=== PATIENT | female | born 1965 | race Two or more races ===

== ENCOUNTER 2018-08-11 18:43 | Emergency (ER) | payer SELFPAY ==
[~2018-08-11] VITALS: Ht 152.4 cm; Wt 86.2 kg
[2018-08-11 19:14] VITALS: BP 143/76
== END 2018-08-11 22:40 | disposition left against medical advice (07) ==
LOC: ER 18:46
DX: M79.601 Pain in right arm (principal); M54.2 Cervicalgia; R51 Headache; Z53.21 Procedure and treatment not carried out due to patient leaving prior to being seen by health care provider

== ENCOUNTER → 2020-07-30 | Outpatient (CLI) | payer OTHER | END | disposition home or self-care (01) | LOC: LAB 14:01 | PROVIDERS: ATTEND Nurse Practitioner Family | DX: Z20.822 Contact with and (suspected) exposure to COVID-19 (principal) | CPT/HCPCS: C9803; U0003 ==

== ENCOUNTER 2024-10-14 20:36 | Inpatient (IN) | payer OTHER ==
[~2024-10-14] VITALS: Ht 152.4 cm; Wt 88.8 kg
--- NOTE | 2024-10-14 21:18 | ED.PDOC ---
History of Present Illness HPI Comments 59 y/o obese, Jordanian speaking F presents with c/c nonradiating, epigastric abdominal pain, with associated nausea and vomiting. Patient endorses on atraumatic and gradual onset of symptoms, last night. Pain is worsens whenever eating. No known recent sick contact, travel, or spoiled food intake. Denies any blood or bilious vomitus, diarrhea, constipation, urinary symptoms, fever, or further associated symptoms. Significant history for cholecystectomy, 1x C- section, and partial thyroidectomy. Time Seen by MD: 21:00 Primary Care Provider: DR FRAZIER Reviewed Notes: Nurses Notes, Medications, Allergies Allergies: Coded Allergies: Penicillins (Verified Allergy, 11/24/12) Information Source: Patient Mode of Arrival: Ambulatory Severity: Moderate Timing: Hours Duration: Since onset Prehospital treatment: None Past Medical History PAST MEDICAL HISTORY: Denies Surgical History: Cholecystectomy, (1x), Thyroidectomy (partial, left side ) Family History Family History: Unknown Social History Smoker: Non-Smoker Alcohol: Denies ETOH Use Drugs: Denies Drug Use Lives In: Home All Other Systems: Reviewed and Negative (Comprehensive systems review obtained and negative except for what is stated in the HPI.) Physical Exam General Appearance: No Apparent Distress, Obese HEENT: Normal ENT Inspection, Pharynx Normal, TMs Normal Neck: Full Range of Motion, Non-Tender, Normal, Normal Inspection Respiratory: Chest Non-Tender, Lungs Clear, No Accessory Muscle Use, No Respiratory Distress, Normal Breath Sounds Cardiovascular: No Edema, No JVD, No Murmur, No Gallop, Normal Peripheral Pulses, Regular Rate/Rhythm Breast Exam: Deferred Gastrointestinal: Epigastric (tenderness ), No Organomegaly, No Pulsatile Mass, Normal Bowel Sounds, Soft, Tenderness (epigastric region ) Genitalia: Deferred Pelvic: Deferred Rectal: Deferred Extremities: No calf tenderness, Normal capillary refill, Normal inspection, Normal range of motion, Non-tender, No pedal edema Musculoskeletal : Apperance: Normal Neurologic: Alert, safety glass installer II-XII nml as Tested, No Motor Deficits, Normal Affect, Normal Mood, No Sensory Deficits Cerebellar Function: Normal Reflexes: Normal Skin: Dry, Normal Color, Warm Lymphatic: No Adenopathy Was a procedure done? Was a procedure done?: No Differential Dx Considerations may include: gastritis, gastroenteritis, GERD, PUD, cholelithiasis, viral syndrome, electrolyte imbalance, dehydration, among others X-Ray, Labs, Meds, VS Lab Test 10/14/24 21:25 Range/Units White Blood Count 6.2 4.4-10.8 10^3/uL Red Blood Count 4.88 4.0-5.20 10^6/uL Hemoglobin 14.7 12.2-16.2 g/dL Hematocrit 43.5 36.0-46.0 % Mean Corpuscular Volume 89.3 80.0-100.0 fL Mean Corpuscular Hemoglobin 30.2 28.0-32.0 pg Mean Corpuscular Hemoglobin Concent 33.9 32.0-36.0 g/dL Red Cell Distribution Width 14.2 11.8-14.3 % Platelet Count 258 140-450 10^3/uL Mean Platelet Volume 8.6 6.9-10.8 fL Neutrophils (%) (Auto) 72.0 37.0-80.0 % Lymphocytes (%) (Auto) 20.2 10.0-50.0 % Monocytes (%) (Auto) 5.5 0.0-12.0 % Eosinophils (%) (Auto) 1.6 0.0-7.0 % Basophils (%) (Auto) 0.7 0.0-2.0 % Neutrophils # (Auto) 4.4 1.6-8.6 10 ^3/uL Lymphocytes # (Auto) 1.2 0.4-5.4 10 ^3/uL Monocytes # (Auto) 0.3 0-1.3 10 ^3/uL Eosinophils # (Auto) 0.1 0-0.8 10 ^3/uL Basophils # (Auto) 0 0-0.2 10 ^3/uL Nucleated Red Blood Cells 0.1 % Sodium Level 142 136-145 mmol/L Potassium Level 3.7 3.5-5.1 mmol/L Chloride Level 106 98-107 mmol/L Carbon Dioxide Level 24 20-31 mmol/L Anion Gap 12 5-15 Blood Urea Nitrogen 14 9-23 mg/dL Creatinine 1.00 0.550-1.02 mg/dL Glomerular Filtration Rate Calc 64 >90 mL/min BUN/Creatinine Ratio 14.0 10.0-20.0 Serum Glucose 115 H 74-106 mg/dL Calcium Level 9.3 8.7-10.4 mg/dL Total Bilirubin 1.1 H 0.2-1.0 mg/dL Aspartate Amino Transferase (AST) 16 13-40 U/L Alanine Aminotransferase (ALT) 15 7-40 U/L Alkaline Phosphatase 103 46-116 U/L Total Protein 7.0 5.7-8.2 g/dL Albumin 4.4 3.2-4.8 g/dL Lipase 63 H 12-53 U/L Current Medications Medications (Trade) Dose Ordered Sig/Yamel Route Start Time Stop Time Status Last Admin Ondansetron HCl (Zofran Po) 8 mg ONCE ONCE PO 10/14/24 21:15 10/14/24 21:16 DC 10/14/24 22:11 Al Hydrox/Mg Hydrox/Simethicone (Maalox Plus) 30 ml ONCE ONCE PO 10/14/24 21:15 10/14/24 21:16 DC 10/14/24 22:10 [place] [address] Ph: [phone] DIAGNOSTIC IMAGING Diagnostic Imaging Report : [id number] Signed PATIENT: SASCHA KRISHNA ACCT: [id number] UNIT: [id number] : 1965 LOC: ER ROOM / BED: / AGE / SEX: 59 / F ADM STATUS: REG ER SERVICE 06 ORDERING PHYSICIAN: MAGDA ADAM MD PROCEDURE(s): ABPL - CT AB PEL WO CON-NO ORAL OR IV REASON: abd pain ORDER NUMBER(s): [id number], ACCESSION NUMBER(s): [id number] Exam: CT CT AB PEL WO CON-NO ORAL OR IV History: abd pain Comparison Study: None TECHNIQUE: Multidetector CT of the abdomen and pelvis without IV contrast. Axial, coronal and sagittal multiplanar reformats were obtained from the axial data set by the technologist. Radiation Dose Information: CT Dose: CTDI volume is 15.84 mGy. Dose-length product is 818.97 mGy*cm FINDINGS: Bibasilar atelectasis. Partially visualized heart is unremarkable. Calcified granuloma within the liver. Status post cholecystectomy. Otherwise, liver, spleen, pancreas and adrenal glands are unremarkable. Small splenule is noted adjacent to the spleen. Kidneys, ureters and urinary bladder unremarkable. Uterus and adnexa unremarkable. Stomach is mildly distended. Otherwise unremarkable. Mildly distended segments of fluid-filled proximal to mid small-bowel measuring up to 3 cm. The remainder of the small bowel loops unremarkable. Appendix is unremarkable. Descending colon and Sigmoid diverticulosis without diverticulitis. Minimal wall thickening of the ascending colon transverse and descending colon. No evidence of intraperitoneal free air or free fluid. No evidence of aortic aneurysm. No significant lymphadenopathy. Surgical clip is noted of the right ventral lower abdominal mesenteric fat. Nonspecific focus of hypodensity within the left lower abdominal mesenteric fat. Soft tissues are unremarkable. No destructive osseous lesions are noted. IMPRESSION: Colitis involving the ascending, transverse and descending colons. Mildly distended Segments of fluid-filled proximal to mid small bowel measuring up to 3 cm which may be due to ileus/ early bowel obstruction. Colonic diverticulosis without diverticulitis. ATED BY: BECKI HALL DO DICTATED DATE/TIME: 10/14/242138 SIGNED BY: BECKI HALL DO SIGNED DATE/TIME: 10/14/242138 CC: Time of 1ST Reevaluation: 21:30 Reevaluation 1ST: Unchanged Patient Education/Counseling: Diagnosis, Treatment, Need For Follow Up Family Education/Counseling: Diagnosis, Treatment, Need For Follow Up, No Family Present SEPSIS Sepsis Screen Physician Orders Urinalysis (10/14/24 20:59) Ct Ab Pel Wo Con-No Oral Or Iv (10/14/24 21:07) Sodium Chloride 0.9% (10/14/24 22:30) Laboratory Tests Test 10/14/24 21:25 White Blood Count 6.2 10^3/uL (4.4-10.8) Medications Medications Dose Ordered Sig/Yamel Route Start Time Stop Time Status Last Admin Dose Admin Al Hydrox/Mg Hydrox/Simethicone 30 ml ONCE ONCE PO 10/14/24 21:15 10/14/24 21:16 DC 10/14/24 22:10 Ondansetron HCl 8 mg ONCE ONCE PO 10/14/24 21:15 10/14/24 21:16 DC 10/14/24 22:11 Departure 1 Departure Time of Disposition: 22:45 Impression: Primary Impression: Colitis Additional Impression: Partial bowel obstruction Disposition: 09 ADMITTED INPATIENT Condition: Guarded Discharged With: Self Comments Abdominal Pain with Nausea and Vomiting Chief Complaint: Generalized abdominal pain with nausea and vomiting for 2 days History of Present Illness: Patient is a 59-year-old female who presents to the Emergency Department with a 2-day history of generalized abdominal pain accompanied by nausea and vomiting. The pain is described as diffuse throughout the abdomen but with notable tenderness in the bilateral lower quadrants on examination. Patient reports persistent symptoms despite home management. No reported fever, chills, diarrhea, constipation, or changes in bowel habits were explicitly mentioned. No history of similar episodes was provided. Review of Systems: Constitutional: No reported fever or chills. Gastrointestinal: Positive for abdominal pain, nausea, and vomiting. No reported diarrhea, constipation, or melena. All other systems: Not specifically addressed in the real estate professional. Medications: No current medications documented. Allergies: No known allergies documented. Vital Signs: No vital signs documented in the real estate professional. Physical Exam: General: Not documented in the real estate professional. Abdomen: Tenderness noted in the lower abdomen bilaterally. No documentation of rebound, guarding, distension, or masses. Lab Results: CBC: Unremarkable. WBC count normal at 6.2. Chemistry Panel: Largely unremarkable with the following exceptions: - Total bilirubin: Borderline elevated at 1.1 - Lipase: Borderline elevated at 63 All other chemistry values within normal limits. Imaging and Other Relevant Results: CT Abdomen: - Colitis involving the ascending, transverse, and descending colon - Mild distended segments of bowel, potentially representing ileus or early bowel obstruction - No free air or free fluid noted Medical Decision Making: Summary Statement: 59-year-old female presenting with 2-day history of general ized abdominal pain, nausea, and vomiting, found to have colitis on CT scan with possible early bowel obstruction. Problem List: 1. Acute colitis 2. Possible early bowel obstruction/ileus 3. Abdominal pain 4. Nausea and vomiting Differential Diagnosis: Infectious colitis, inflammatory bowel disease, ischemic colitis, medication-induced colitis, partial small bowel obstruction, paralytic ileus, gastroenteritis, diverticulitis. ED Course: Patient presented with abdominal pain, nausea, and vomiting. Initial workup included CBC and chemistry panel showing borderline elevated total bilirubin and lipase. CT abdomen revealed colitis of the ascending, transverse, and descending colon with some distended bowel segments concerning for ileus or early obstruction. Patient was reassessed and continued to have pain and nausea despite ED interventions. Decision made to admit for further management. Assessment and Plan: 1. Acute Colitis: - Admit to medical floor for further management - IV fluid hydration - Bowel rest with clear liquid diet as tolerated - Consider broad-spectrum antibiotics pending further clinical evaluation - Monitor for signs of worsening inflammation or perforation 2. Possible Early Bowel Obstruction/Ileus: - Serial abdominal exams - NPO status initially with advancement as tolerated - Nasogastric tube placement if symptoms worsen - Surgical consultation if obstruction progresses 3. Abdominal Pain/Nausea/Vomiting: - Antiemetics as needed (ondansetron) - Pain management with IV analgesics - Reassess symptoms regularly 4. Disposition: Admit to inpatient medical service for continued management and observation. Additional Notes: Patient admitted for acute colitis and possible early bowel obstruction Billing Information: ICD-10: K52.9 - Noninfective gastroenteritis and colitis, unspecified ICD-10: K56.0 - Paralytic ileus ICD-10: R10.9 - Unspecified abdominal pain ICD-10: R11.2 - Nausea with vomiting, unspecified Critical Care Note Critical Care Time?: No Stability Stability form required: No Heart Score Heart Score: Heart Score Response (Comments) Value History N/A 0 EKG N/A 0 Age N/A 0 Risk Factors N/A 0 Troponin N/A 0 Total 0 I personally scribed for MAGDA ADAM MD ([email or web address]) on 10/14/24 at 21:18. Electronically submitted by French Ogden ([email or web address]). I personally scribed for MAGDA ADAM MD ([email or web address]) on 10/14/24 at 22:06. Electronically submitted by French Ogden ([email or web address]). MAGDA ADAM MD Oct 14, 2024 21:18
--- NOTE | 2024-10-14 21:41 | DVH ---
Exam: CT CT AB PEL WO CON-NO ORAL OR IV History: abd pain Comparison Study: None TECHNIQUE: Multidetector CT of the abdomen and pelvis without IV contrast. Axial, coronal and sagitta l multiplanar reformats were obtained from the axial data set by the technologist. Radiation Dose Information: CT Dose: CTDI volume is 15.84 mGy. Dose-length product is 818.97 mGy*cm FINDINGS: Bibasilar atelectasis. Partially visualized heart is unremarkable. Calcified granuloma within the liver. Status post cholecystectomy. Otherwise, liver, spleen, pancrea s and adrenal glands are unremarkable. Small splenule is noted adjacent to the spleen. Kidneys, ureters and urinary bladder unremarkable. Uterus and adnexa unremarkable. Stomach is mildly distended. Otherwise unremarkable. Mildly distended segments of fluid-filled proxi mal to mid small-bowel measuring up to 3 cm. The remainder of the small bowel loops unremarkable. A ppendix is unremarkable. Descending colon and Sigmoid diverticulosis without diverticulitis. Minimal wall thickening of the ascending colon transverse and descending colon. No evidence of intraperitoneal free air or free fluid. No evidence of aortic aneurysm. No significant lymphadenopathy. Surgical clip is noted of the right ventral lower abdominal mesenteric fat. Nonspecific focus of hypo density within the left lower abdominal mesenteric fat. Soft tissues are unremarkable. No destructive osseous lesions are noted. IMPRESSION: Colitis involving the ascending, transverse and descending colons. Mildly distended Segments of fluid-filled proximal to mid small bowel measuring up to 3 cm which may be due to ileus/ early bowel obstruction. Colonic diverticulosis without diverticulitis.
[2024-10-14 21:48] LABS: Hematocrit 43.5 % (36.0-46.0); Hemoglobin 14.7 g/dL (12.2-16.2); Mean Corpuscular Hemoglobin 30.2 pg (28.0-32.0); Mean Corpuscular Volume 89.3 fL (80.0-100.0); Nucleated Red Blood Cells % 0.1 %
[2024-10-14 22:10] LABS: Alanine Aminotransferase 15 U/L (7-40); Albumin 4.4 g/dL (3.2-4.8); Alkaline Phosphatase 103 U/L (46-116); Anion Gap 12 (5-15); BUN/Creatinine Ratio 14.0 (10.0-20.0); Blood Urea Nitrogen 14 mg/dL (9-23); Calcium 9.3 mg/dL (8.7-10.4); Carbon Dioxide 24 mmol/L (20-31); Chloride 106 mmol/L (98-107); Potassium 3.7 mmol/L (3.5-5.1); Sodium 142 mmol/L (136-145); Total Protein 7.0 g/dL (5.7-8.2)
[2024-10-14] MEDS: MAALOX PLUS or MAALOX 30 ML PO ONE (22:10)
[2024-10-14 22:11] LABS: Bilirubin, Total 1.1 mg/dL (0.2-1.0)
[2024-10-14] MEDS: ONDANSETRON ODT 4 MG TAB PO ONE (22:11)
[2024-10-14 22:25] LABS: Glucose 115 mg/dL (74-106); Lipase 63 U/L (12-53)
[2024-10-14] MEDS: HYDROcodone-ACET 10/325MG TAB PO ONE (22:41)
[2024-10-14] MEDS: FAMOTIDINE 20 MG TAB PO ONE (22:41)
[2024-10-14] MEDS: MORPHINE SULFATE 4 MG/ML SYR/VIAL IV ONE (22:51)
[2024-10-14] MEDS: SODIUM CHLORIDE 0.9% 1,000 ML IV ONE (22:51)
[2024-10-14] MEDS: diphenhdrAMINE HCL 50 MG/1 ML VL IV ONE (22:51)
[2024-10-14 22:55] VITALS: PULSE 53; RESP 18; O2SAT 98
[2024-10-14] MEDS: METOCLOPRAMIDE HCL 5MG/ml INJ 2ml VIAL IV ONE (23:08)
[2024-10-15] VITALS (7 sets, daily range): BP systolic 95–124; BP diastolic 50–65; PULSE 48–55; RESP 11–19; TEMP 97.5–98.1; O2SAT 95–98
--- NOTE | 2024-10-15 00:11 | DVHHP2 ---
History of Present Illness Reason for Visit: Abdominal pain History of Present Illness 59-year-old female presents for evaluation of abdominal pain. Patient reports a one day history of sharp epigastric abdominal pain with associated nausea and vomiting. Denies fever, chills or diarrhea. Pain is epigastric and nonradiating. No other acute complaints reported. Past Medical History Denies Past Surgical History Cholecystectomy, , thyroidectomy Family History Noncontributory Smoke: No ALCOHOL: none Drugs: None Lives: with Family Review of Systems Review of Systems Review of systems are currently negative otherwise addressed in HPI. Allergies: Coded Allergies: Penicillins (Verified Allergy, 11/24/12) Medications Current Medications Medications Dose Ordered Sig/Yamel Route Start Time Stop Time Status Last Admin Dose Admin Metronidazole 100 ml @ 100 mls/hr Q8HR IV 10/15/24 06:00 Pantoprazole Sodium 40 mg DAILY IV 10/15/24 10:00 Ondansetron HCl 4 mg Q4HP PRN IV 10/15/24 00:00 Morphine Sulfate 2 mg Q4HPRN PRN IV 10/15/24 00:00 Exam Vital Signs Vital Signs Date Time Temp Pulse Resp B/P (MAP) Pulse Ox O2 Delivery O2 Flow Rate FiO2 10/14/24 23:39 57 18 89/48 10/14/24 22:55 98 Room Air* 0 21 10/14/24 22:55 98.0 98.0 Exam Gen: 67-year-old female in mild distress Skin: Warm, dry, normal color and texture, no rash. HEENT: Normocephalic atraumatic, mucous membranes moist and pink. Neck: Cervical and supraclavicular nodes normal without enlargement, trachea is midline, thyroid gland is normal without masses. Pulmonary: Clear to auscultation and percussion bilaterally. Cardiac: Regular rate and rhythm. No murmur Abdomen: Soft, epigastric tenderness, nondistended, bowel sounds present all 4 quadrants, no guarding, no rigidity, no organomegaly. Extremities: No cyanosis, clubbing, no edema Neuro: Cranial nerves II through XII grossly intact, normal affect and speech, no focal motor deficits. Labs/Xrays ORDERING PHYSICIAN: MAGDA ADAM MD PROCEDURE(s): ABPL - CT AB PEL WO CON-NO ORAL OR IV REASON: abd pain ORDER NUMBER(s): [id number], ACCESSION NUMBER(s): [id number] Exam: CT CT AB PEL WO CON-NO ORAL OR IV History: abd pain Comparison Study: None TECHNIQUE: Multidetector CT of the abdomen and pelvis without IV contrast. Axial, coronal and sagittal multiplanar reformats were obtained from the axial data set by the technologist. Radiation Dose Information: CT Dose: CTDI volume is 15.84 mGy. Dose-length product is 818.97 mGy*cm FINDINGS: Bibasilar atelectasis. Partially visualized heart is unremarkable. Calcified granuloma within the liver. Status post cholecystectomy. Otherwise, liver, spleen, pancreas and adrenal glands are unremarkable. Small splenule is noted adjacent to the spleen. Kidneys, ureters and urinary bladder unremarkable. Uterus and adnexa unremarkable. Stomach is mildly distended. Otherwise unremarkable. Mildly distended segments of fluid-filled proximal to mid small-bowel measuring up to 3 cm. The remainder of the small bowel loops unremarkable. Appendix is unremarkable. Descending colon and Sigmoid diverticulosis without diverticulitis. Minimal wall thickening of the ascending colon transverse and descending colon. No evidence of intraperitoneal free air or free fluid. No evidence of aortic aneurysm. No significant lymphadenopathy. Surgical clip is noted of the right ventral lower abdominal mesenteric fat. Non specific focus of hypodensity within the left lower abdominal mesenteric fat. Soft tissues are unremarkable. No destructive osseous lesions are noted. IMPRESSION: Colitis involving the ascending, transverse and descending colons. Mildly distended Segments of fluid-filled proximal to mid small bowel measuring up to 3 cm which may be due to ileus/ early bowel obstruction. Colonic diverticulosis without diverticulitis. Labs Test 10/14/24 21:25 Range/Units White Blood Count 6.2 4.4-10.8 10^3/uL Red Blood Count 4.88 4.0-5.20 10^6/uL Hemoglobin 14.7 12.2-16.2 g/dL Hematocrit 43.5 36.0-46.0 % Mean Corpuscular Volume 89.3 80.0-100.0 fL Mean Corpuscular Hemoglobin 30.2 28.0-32.0 pg Mean Corpuscular Hemoglobin Concent 33.9 32.0-36.0 g/dL Red Cell Distribution Width 14.2 11.8-14.3 % Platelet Count 258 140-450 10^3/uL Mean Platelet Volume 8.6 6.9-10.8 fL Neutrophils (%) (Auto) 72.0 37.0-80.0 % Lymphocytes (%) (Auto) 20.2 10.0-50.0 % Monocytes (%) (Auto) 5.5 0.0-12.0 % Eosinophils (%) (Auto) 1.6 0.0-7.0 % Basophils (%) (Auto) 0.7 0.0-2.0 % Neutrophils # (Auto) 4.4 1.6-8.6 10 ^3/uL Lymphocytes # (Auto) 1.2 0.4-5.4 10 ^3/uL Monocytes # (Auto) 0.3 0-1.3 10 ^3/uL Eosinophils # (Auto) 0.1 0-0.8 10 ^3/uL Basophils # (Auto) 0 0-0.2 10 ^3/uL Nucleated Red Blood Cells 0.1 % Sodium Level 142 136-145 mmol/L Potassium Level 3.7 3.5-5.1 mmol/L Chloride Level 106 98-107 mmol/L Carbon Dioxide Level 24 20-31 mmol/L Anion Gap 12 5-15 Blood Urea Nitrogen 14 9-23 mg/dL Creatinine 1.00 0.550-1.02 mg/dL Glomerular Filtration Rate Calc 64 >90 mL/min BUN/Creatinine Ratio 14.0 10.0-20.0 Serum Glucose 115 H 74-106 mg/dL Calcium Level 9.3 8.7-10.4 mg/dL Total Bilirubin 1.1 H 0.2-1.0 mg/dL Aspartate Amino Transferase (AST) 16 13-40 U/L Alanine Aminotransferase (ALT) 15 7-40 U/L Alkaline Phosphatase 103 46-116 U/L Total Protein 7.0 5.7-8.2 g/dL Albumin 4.4 3.2-4.8 g/dL Lipase 63 H 12-53 U/L SEPSIS Sepsis Screen Date sepsis recognized/suspect: Oct 14, 2024 Time Sepsis recognized/suspect: 2049 Recent Procedure: No On Antibiotic Therapy: No Respiratory Rate >20: No Heart Rate >90: No Temp<36 C (96.8 F) or >38.3 C: No SBP <90 or MAP <65 mmHG: No New Acute Mental Status Change: No Is the patient on CPAP, BIPAP,: No Physician Orders Urinalysis (10/14/24 20:59) Ct Ab Pel Wo Con-No Oral Or Iv (10/14/24 21:07) Admit (10/14/24 23:48) * Surgical Consult (10/14/24 ) Small Bowel Series-W Gastrogra (10/14/24 23:49) Sodium Chloride 0.9% (10/15/24 00:00) Metronidazole 500mg/100ml (Flagyl 500mg/ (10/15/24 06:00) Pantoprazole (Protonix) (10/15/24 10:00) Ondansetron Hcl (Zofran) (10/15/24 00:00) Complete Blood Count (10/15/24 04:00) Npo (Nothing By Mouth) Diet (10/15/24 Breakfast) Condition: Stable (10/14/24 23:49) Bedrest With Bathroom Privileg (10/14/24 23:49) Morphine Sulfate Injection (10/15/24 00:00) Basic Metabolic Panel (10/15/24 04:00) Vital Signs Date Time Temp Pulse Resp B/P (MAP) Pulse Ox O2 Delivery O2 Flow Rate FiO2 10/14/24 23:39 57 18 89/48 10/14/24 22:55 53 18 98 Room Air* 0 21 10/14/24 22:55 98.0 53 18 117/57 (77) 98 98.0 10/14/24 22:51 53 18 117/57 10/14/24 20:36 97.8 57 17 135/74 (94) 99 97.8 Laboratory Tests Test 10/14/24 21:25 White Blood Count 6.2 10^3/uL (4.4-10.8) Medications Medications Dose Ordered Sig/Yamel Route Start Time Stop Time Status Last Admin Dose Admin Al Hydrox/Mg Hydrox/Simethicone 30 ml ONCE ONCE PO 10/14/24 21:15 10/14/24 21:16 DC 10/14/24 22:10 30 ML Morphine Sulfate 4 mg ONCE ONCE IV 10/14/24 22:30 10/14/24 22:31 DC 10/14/24 22:51 4 MG Ondansetron HCl 8 mg ONCE ONCE PO 10/14/24 21:15 10/14/24 21:16 DC 10/14/24 22:11 8 MG Sodium Chloride 1,000 ml @ 1,000 mls/hr Q1H ONCE IV 10/14/24 22:30 10/14/24 23:29 DC 10/14/24 22:51 1,000 MLS/HR Assessment/Plan Assessment/Plan Assessment Acute abdominal pain Acute colitis versus bowel obstruction Plan Admit the patient to [facility] to the hospitalist Surgical consultation NPO Small-bowel follow-through Pain management Continue treatment per orders. Plan discussed with: Patient My Orders Orders - ERIN MAYA Procedure Category Date Status Time Admit ADMIT 10/14/24 Transmitted 23:48 * Surgical Consult CONS 10/14/24 Transmitted Small Bowel Series-W XY 10/14/24 Logged Gastrogra 23:49 Sodium Chloride 0.9% PHA 10/15/24 In Process 00:00 Metronidazole PHA 10/15/24 In Process 500mg/100ml (Flagyl 06:00 Pantoprazole PHA 10/15/24 In Process (Protonix) 10:00 Ondansetron Hcl PHA 10/15/24 In Process (Zofran) 00:00 Complete Blood Count LAB 10/15/24 Logged 04:00 Npo (Nothing By DIET 10/15/24 Transmitted Mouth) Diet Breakfast Condition: Stable YENNIFER 10/14/24 In Process 23:49 Bedrest With Bathroom YENNIFER 10/14/24 In Process Privileg 23:49 Morphine Sulfate PHA 10/15/24 In Process Injection 00:00 Basic Metabolic Panel LAB 10/15/24 Logged 04:00 Date of Service: Oct 15, 2024 Billing Provider: ERIN MAYA Common Visit Codes: [id number] INP/OBS CARE (MOD) ERIN MAYA Oct 15, 2024 00:11
[2024-10-15] MEDS: SODIUM CHLORIDE 0.9% 500 ML IV ONE (00:20)
[2024-10-15] MEDS: MORPHINE SULFATE INJ 2 MG/ml SYRG IV PRN (02:11)
[2024-10-15 06:34] LABS: Hematocrit 39.3 % (36.0-46.0); Hemoglobin 13.5 g/dL (12.2-16.2); Mean Corpuscular Hemoglobin 30.6 pg (28.0-32.0); Mean Corpuscular Volume 89.3 fL (80.0-100.0); Nucleated Red Blood Cells % 0.0 %
[2024-10-15 06:44] LABS: Potassium 3.8 mmol/L (3.5-5.1); Sodium 144 mmol/L (136-145)
[2024-10-15 06:45] LABS: Anion Gap 11 (5-15); Calcium 9.2 mg/dL (8.7-10.4); Carbon Dioxide 24 mmol/L (20-31)
[2024-10-15 06:50] LABS: BUN/Creatinine Ratio 16.1 (10.0-20.0); Blood Urea Nitrogen 15 mg/dL (9-23)
[2024-10-15 06:52] LABS: Chloride 109 mmol/L (98-107); Glucose 130 mg/dL (74-106)
[2024-10-15] MEDS: PANTOPRAZOLE 40 MG/10 ML VIAL INJ IV SCH (09:00)
[2024-10-15] MEDS ORDERED: GASTROGRAFIN 120 ML SOL ONE (10:46)
--- NOTE | 2024-10-15 10:50 | DVHPN2 ---
Subjective Japanese-speaking; staff helped with translation; still complaining of abdominal pain but no nausea/vomiting Reviewed: Care Plan, H&P, Labs, Medications, Previous Orders, Radiology, Other (Consultation) Changes from previous H/P or p: Changes Objective Vitals Vital Signs Date Time Temp Pulse Resp B/P (MAP) Pulse Ox O2 Delivery O2 Flow Rate FiO2 10/15/24 09:14 97.5 55 19 95/57 (70) 97 97.5 10/15/24 01:46 Room Air* 0 21 Intake/Output Intake and Output 10/15/24 07:00 Intake Total 1500 ml Balance 1500 ml Intake Oral 0 ml IV Total 1500 ml General Appearance: Alert, Oriented X3, Cooperative, mild distress Lungs: Clear to auscultation, Normal air movement Cardiovascular: Regular rate, Normal S1, Normal S2, No murmurs Abdomen: Soft, Other (Hyperactive bowel sounds with diffuse tenderness) Extremities: No edema Neuro: Normal speech, Cranial nerves 3-12 NL Psych/Mental Status: Mental status NL, Mood NL Medications Current Medications Medications Dose Ordered Sig/Yamel Route Start Time Stop Time Status Last Admin Dose Admin Metronidazole 100 ml @ 100 mls/hr Q8HR IV 10/15/24 06:00 10/15/24 05:01 100 MLS/HR Pantoprazole Sodium 40 mg DAILY IV 10/15/24 10:00 10/15/24 09:00 40 MG Ondansetron HCl 4 mg Q4HP PRN IV 10/15/24 00:00 Morphine Sulfate 2 mg Q4HPRN PRN IV 10/15/24 00:00 10/15/24 09:01 2 MG Laboratory Results Laboratory Tests 10/15/24 05:37 Chemistry Test 10/14/24 21:25 10/15/24 05:37 Albumin 4.4 g/dL (3.2-4.8) Calcium Level 9.3 mg/dL (8.7-10.4) 9.2 mg/dL (8.7-10.4) Total Protein 7.0 g/dL (5.7-8.2) Lipid panel Test 10/14/24 21: Lipase 63 U/L (12-53) H LFT Test 10/14/24 21:25 Alanine Aminotransferase (ALT) 15 U/L (7-40) Alkaline Phosphatase 103 U/L (46-116) Aspartate Amino Transferase (AST) 16 U/L (13-40) Total Bilirubin 1.1 mg/dL (0.2-1.0) H Labs and/or images reviewed: Labs reviewed by me, Image(s) reviewed by me Assessment/Plan Assessment/Plan A 59-year-old obese female patient; with no known past medical history; who presented to emergency department with acute abdomen. # Acute abdomen; to rule out small-bowel obstruction # VALERIA; most likely vasomotor nephropathy # Colonic diverticulosis without diverticulitis # Pancolitis # Obesity To keep NPO for now until the result of small bowel series Reviewed abdomen/pelvis CT and lab work including elevated lipase Continue IV antibiotics Surgery consulted Continue IV fluids Avoid nephrotoxic agents Continue pain management as indicated Counseled the patient on the importance of adopting healthy lifestyle with diet and exercise in order to lose weight Continue monitoring Goals of care discussed with the patient for 20 minutes; full code Late Entry. This medical document was created using an electronic medical record system with computerized dictation system. Although this document has been carefully reviewed, there might still be some phonetic and typographical errors. These areas are purely typographical due to imperfections of the software programs, and do not reflect any compromise in the patient's medical care. Plan discussed with: Patient, Other (Nurse) My Orders Orders - SHIMA PANCHAL MD Procedure Category Date Status Time Complete Blood Count LAB 10/16/24 Verified 04:00 Comprehensive LAB 10/16/24 Verified Metabolic Panel 04:00 Date of Service: Oct 15, 2024 Billing Provider: SHIMA PANCHAL MD Common Visit Codes: [id number] INP/OBS CARE(HIGH) Secondary Visit Codes: [id number] CARE PLAN 30 MINUTES (20 minutes) SHIMA PANCHAL MD Oct 15, 2024 10:50
--- NOTE | 2024-10-15 14:55 | DVH ---
Procedure: XY SMALL BOWEL SERIES-W GASTROGRA Reason for study/Clinical History: R/O obstruction Comparison Study: None Technique: Single contrast small bowel series performed. FINDINGS/IMPRESSION: Initial associate professor of counseling view of the abdomen and pelvis appears demonstrates no acute process. Contrast is identified within the colon by 2 hours. This represents a normal small bowel transit anthony garcia
[2024-10-15] MEDS ORDERED: MORPHINE SULFATE INJ 2 MG/ml SYRG IV PRN (17:00)
[2024-10-16] VITALS (8 sets, daily range): BP systolic 108–129; BP diastolic 59–93; PULSE 55–69; RESP 18; TEMP 97.6–98.7; O2SAT 95–98
[2024-10-16 06:52] LABS: Hematocrit 36.3 % (36.0-46.0); Hemoglobin 12.8 g/dL (12.2-16.2); Mean Corpuscular Hemoglobin 31.8 pg (28.0-32.0); Mean Corpuscular Volume 89.8 fL (80.0-100.0); Nucleated Red Blood Cells % 0.2 %
[2024-10-16 06:57] LABS: Alanine Aminotransferase 16 U/L (7-40); Albumin 3.7 g/dL (3.2-4.8); Alkaline Phosphatase 89 U/L (46-116); Anion Gap 10 (5-15); BUN/Creatinine Ratio 15.7 (10.0-20.0); Blood Urea Nitrogen 16 mg/dL (9-23); Calcium 9.1 mg/dL (8.7-10.4); Carbon Dioxide 24 mmol/L (20-31); Glucose 88 mg/dL (74-106); Potassium 3.5 mmol/L (3.5-5.1); Total Protein 5.8 g/dL (5.7-8.2)
[2024-10-16 07:02] LABS: Bilirubin, Total 1.3 mg/dL (0.2-1.0); Chloride 111 mmol/L (98-107); Sodium 145 mmol/L (136-145)
--- NOTE | 2024-10-16 09:08 | DVHPN2 ---
Subjective Latvian-speaking; staff helped with translation; decreasing abdominal pain; complaining of the area; no nausea/vomiting Reviewed: Care Plan, H&P, Labs, Medications, Previous Orders, Radiology, Other (Consultation) Changes from previous H/P or p: Changes Objective Vitals Vital Signs Date Time Temp Pulse Resp B/P (MAP) Pulse Ox O2 Delivery O2 Flow Rate FiO2 10/16/24 08:39 98.3 69 18 129/93 (105) 98 98.3 10/15/24 20:00 Room Air* 0 21 Intake/Output Intake and Output 10/16/24 07:00 Intake Total 1500 ml Balance 1500 ml Intake Oral 1400 ml IV Total 100 ml # Voids 10 # Bowel Movements 4 General Appearance: Alert, Oriented X3, Cooperative, No acute distress Lungs: Clear to auscultation, Normal air movement Cardiovascular: Regular rate, Normal S1, Normal S2, No murmurs Abdomen: Soft, Other (Hyperactive bowel sounds with diffuse tenderness) Extremities: No edema Neuro: Normal speech, Cranial nerves 3-12 NL Psych/Mental Status: Mental status NL, Mood NL Medications Current Medications Medications Dose Ordered Sig/Yamel Route Start Time Stop Time Status Last Admin Dose Admin Metronidazole 100 ml @ 100 mls/hr Q8HR IV 10/15/24 06:00 10/16/24 05:18 100 MLS/HR Pantoprazole Sodium 40 mg DAILY IV 10/15/24 10:00 10/15/24 09:00 40 MG Ondansetron HCl 4 mg Q4HP PRN IV 10/15/24 00:00 Morphine Sulfate 2 mg Q4HPRN PRN IV 10/15/24 00:00 Hold 10/15/24 09:01 2 MG Morphine Sulfate 1 mg Q4HP PRN IV 10/15/24 17:00 Laboratory Results Laboratory Tests 10/16/24 05:52 Chemistry Test 10/16/24 05:52 Albumin 3.7 g/dL (3.2-4.8) Calcium Level 9.1 mg/dL (8.7-10.4) Total Protein 5.8 g/dL (5.7-8.2) LFT Test 10/16/24 05:52 Alanine Aminotransferase (ALT) 16 U/L (7-40) Alkaline Phosphatase 89 U/L (46-116) Aspartate Amino Transferase (AST) 15 U/L (13-40) Total Bilirubin 1.3 mg/dL (0.2-1.0) H Labs and/or images reviewed: Labs reviewed by me, Image(s) reviewed by me Assessment/Plan Assessment/Plan A 59-year-old obese female patient; with no known past medical history; who presented to emergency department with acute abdomen. # Acute abdomen; small-bowel obstruction ruled out # VALERIA; most likely vasomotor nephropathy # Colonic diverticulosis without diverticulitis # Pancolitis # Morbid obesity Started on clear liquid diet Reviewed abdomen/pelvis CT and small bowel x-rays along with lab work including elevated lipase Continue IV antibiotics Surgery evaluated the patient; recommended GI consult: Stool studies ordered Continue IV fluids Avoid nephrotoxic agents Continue pain management as indicated Counseled the patient on the importance of adopting healthy lifestyle with diet and exercise in order to lose weight Continue monitoring Late Entry. This medical document was created using an electronic medical record system with computerized dictation system. Although this document has been carefully reviewed, there might still be some phonetic and typographical errors. These areas are purely typographical due to imperfections of the software programs, and do not reflect any compromise in the patient's medical care. Plan discussed with: Patient, Other (Nurse) My Orders Orders - SHIMA PANCHAL MD Procedure Category Date Status Time Morphine Sulfate PHA 10/15/24 In Process Injection 17:00 Clear Liq Diet DIET 10/16/24 Transmitted Breakfast Basic Metabolic Panel LAB 10/17/24 Verified 04:00 Complete Blood Count LAB 10/17/24 Verified 04:00 Date of Service: Oct 16, 2024 Billing Provider: SHIMA PANCHAL MD Common Visit Codes: [id number] INP/OBS CARE(HIGH) SHIMA PANCHAL MD Oct 16, 2024 09:08
--- NOTE | 2024-10-16 09:33 | DVHINCON2 ---
Date of service: Oct 16, 2024 History of Present Illness 59-year-old female complaining of one day history of epigastric abdominal pain associated with nausea and vomiting. Patient denies any fevers or chills. Patient denies any abdominal pain. Past Medical History None Past Surgical History Cholecystectomy. . Thyroidectomy. Family History: FH: heart attack G8 MOTHER G8 FATHER Family History NC Social History denies Alcohol, tobacco, IV drug use Allergies: Coded Allergies: Penicillins (Verified Allergy, 11/24/12) Current Medications Current Medications Medications (Trade) Dose Ordered Sig/Yamel Route PRN Reason Start Time Stop Time Status Last Admin Pantoprazole Sodium (Protonix) 40 mg DAILY IV 10/15/24 10:00 10/16/24 08:55 Morphine Sulfate 1 mg Q4HP PRN IV SEVERE PAIN (7-10 PAIN SCALE) 10/15/24 17:00 Enoxaparin Sodium (Lovenox) 40 mg DAILY SC 10/16/24 10:00 Vital Signs Vital Signs Date Time Temp Pulse Resp B/P (MAP) Pulse Ox O2 Delivery O2 Flow Rate FiO2 10/16/24 08:39 98.3 69 18 129/93 (105) 98 98.3 10/15/24 20:00 Room Air* 0 21 Physical Exam GEN: Age-appropriate female in no acute distress. Alert. HEENT: Normocephalic atraumatic. Moist mucous membranes. Anicteric sclerae. CV: RRR Respiratory: CTAB ABD: Soft. Nontender nondistended. Small-bowel follow-through: Normal CT of the abdomen and pelvis: Colitis involving the ascending, transverse and descending colons Labs/Diagnostic Data Labs Test 10/16/24 05:52 10/15/24 00:44 10/14/24 21:25 Range/Units White Blood Count 3.7 #L 4.4-10.8 10^3/uL Red Blood Count 4.04 4.0-5.20 10^6/uL Hemoglobin 12.8 12.2-16.2 g/dL Hematocrit 36.3 36.0-46.0 % Mean Corpuscular Volume 89.8 80.0-100.0 fL Mean Corpuscular Hemoglobin 31.8 28.0-32.0 pg Mean Corpuscular Hemoglobin Concent 35.4 32.0-36.0 g/dL Red Cell Distribution Width 14.7 H 11.8-14.3 % Platelet Count 209 140-450 10^3/uL Mean Platelet Volume 8.7 6.9-10.8 fL Neutrophils (%) (Auto) 56.1 37.0-80.0 % Lymphocytes (%) (Auto) 32.9 10.0-50.0 % Monocytes (%) (Auto) 7.8 0.0-12.0 % Eosinophils (%) (Auto) 2.6 0.0-7.0 % Basophils (%) (Auto) 0.6 0.0-2.0 % Neutrophils # (Auto) 2.1 1.6-8.6 10 ^3/uL Lymphocytes # (Auto) 1.2 0.4-5.4 10 ^3/uL Monocytes # (Auto) 0.3 0-1.3 10 ^3/uL Eosinophils # (Auto) 0.1 0-0.8 10 ^3/uL Basophils # (Auto) 0 0-0.2 10 ^3/uL Nucleated Red Blood Cells 0.2 % Sodium Level 145 136-145 mmol/L Potassium Level 3.5 3.5-5.1 mmol/L Chloride Level 111 H 98-107 mmol/L Carbon Dioxide Level 24 20-31 mmol/L Anion Gap 10 5-15 Blood Urea Nitrogen 16 9-23 mg/dL Creatinine 1.02 0.550-1.02 mg/dL Glomerular Filtration Rate Calc 63 >90 mL/min BUN/Creatinine Ratio 15.7 10.0-20.0 Serum Glucose 88 74-106 mg/dL Calcium Level 9.1 8.7-10.4 mg/dL Total Bilirubin 1.3 H 0.2-1.0 mg/dL Aspartate Amino Transferase (AST) 15 13-40 U/L Alanine Aminotransferase (ALT) 16 7-40 U/L Alkaline Phosphatase 89 46-116 U/L Total Protein 5.8 5.7-8.2 g/dL Albumin 3.7 3.2-4.8 g/dL POC Glucose 118 H 70-106 mg/dl Lipase 63 H 12-53 U/L Assessment 1. colitis Plan/Recommendation 1. clinically improving. 2. clear liquid diet 3. GI consult. 4. no acute surgical indications. Plan discussed with: Patient PERCY BURCH MD Oct 16, 2024 09:33
[2024-10-16] MEDS: ENOXAPARIN SOD 40 MG/0.4 ML SYRINGE SC SCH (10:22)
--- NOTE | 2024-10-16 14:28 | DVHINCON2 ---
GI Consult Consult Note GI consult note Date of Consultation: 10/16/2024 Chief Complaint: Abdominal pain Referring Physician: Dr. Nicholson H&P: 59-year-old female admitted to the hospital with abdominal pain Patient complaining of epigastric abdominal pain for three days. Also has nausea and vomiting, none at this time. Patient has occasional GERD symptoms only Patient complains of loose stool about 10 episodes yesterday, so far this morning four episodes, yellow in color, denies melena or red blood in stool. No EGD or colonoscopy in past. Patient is status post cholecystectomy 25 years ago. Denies alcohol use Past Medical History: Denies Past Surgical History: Cholecystectomy, , thyroidectomy Social History: NO smoking, drinking ETOH and use of illegal drugs. Family History: Noncontributory Review of Systems: Constitutional: no fever, chill, weight loss HEENT: no eye pain, no hearing loss, no oral lesion, no scleral icterus Heart: no chest pain, no chest pressure Lung: no cough, no dyspnea with exertion Abdomen: see HPI Physical exam: General: NAD, AAOX3 Chest: lung [place] clear to auscultation Heart: RRR, no murmur Abdomen: + moderate epigastric tenderness to palpation, +BS Labs: Labs Test 10/16/24 05:52 10/15/24 00:44 10/14/24 21:25 Range/Units White Blood Count 3.7 #L 4.4-10.8 10^3/uL Red Blood Count 4.04 4.0-5.20 10^6/uL Hemoglobin 12.8 12.2-16.2 g/dL Hematocrit 36.3 36.0-46.0 % Mean Corpuscular Volume 89.8 80.0-100.0 fL Mean Corpuscular Hemoglobin 31.8 28.0-32.0 pg Mean Corpuscular Hemoglobin Concent 35.4 32.0-36.0 g/dL Red Cell Distribution Width 14.7 H 11.8-14.3 % Platelet Count 209 140-450 10^3/uL Mean Platelet Volume 8.7 6.9-10.8 fL Neutrophils (%) (Auto) 56.1 37.0-80.0 % Lymphocytes (%) (Auto) 32.9 10.0-50.0 % Monocytes (%) (Auto) 7.8 0.0-12.0 % Eosinophils (%) (Auto) 2.6 0.0-7.0 % Basophils (%) (Auto) 0.6 0.0-2.0 % Neutrophils # (Auto) 2.1 1.6-8.6 10 ^3/uL Lymphocytes # (Auto) 1.2 0.4-5.4 10 ^3/uL Monocytes # (Auto) 0.3 0-1.3 10 ^3/uL Eosinophils # (Auto) 0.1 0-0.8 10 ^3/uL Basophils # (Auto) 0 0-0.2 10 ^3/uL Nucleated Red Blood Cells 0.2 % Sodium Level 145 136-145 mmol/L Potassium Level 3.5 3.5-5.1 mmol/L Chloride Level 111 H 98-107 mmol/L Carbon Dioxide Level 24 20-31 mmol/L Anion Gap 10 5-15 Blood Urea Nitrogen 16 9-23 mg/dL Creatinine 1.02 0.550-1.02 mg/dL Glomerular Filtration Rate Calc 63 >90 mL/min BUN/Creatinine Ratio 15.7 10.0-20.0 Serum Glucose 88 74-106 mg/dL Calcium Level 9.1 8.7-10.4 mg/dL Total Bilirubin 1.3 H 0.2-1.0 mg/dL Aspartate Amino Transferase (AST) 15 13-40 U/L Alanine Aminotransferase (ALT) 16 7-40 U/L Alkaline Phosphatase 89 46-116 U/L Total Protein 5.8 5.7-8.2 g/dL Albumin 3.7 3.2-4.8 g/dL POC Glucose 118 H 70-106 mg/dl Lipase 63 H 12-53 U/L Imaging: CT abdomen pelvis IMPRESSION: Colitis involving the ascending, transverse and descending colons. Mildly distended Segments of fluid-filled proximal to mid small bowel measuring up to 3 cm which may be due to ileus/ early bowel obstruction. Colonic diverticulosis without diverticulitis. Abdominal x-ray FINDINGS/IMPRESSION: Initial structures assembler view of the abdomen and pelvis appears demonstrates no acute pr ocess. Assessment: Colitis Diarrhea Abdominal pain Abnormal findings on CT scan Elevated total bilirubin Plan: Discussed with Dr. Martin Monte for WBC, culture and C diff IV antibiotics Protonix and Carafate Abdominal ultrasound for elevated total bilirubin Possible EGD discussed for symptoms of epigastric pain, patient at this time would like to defer endoscopy and get treated with medications, discussed risks benefits and alternatives of procedure and sedation with patient also Clear liquid diet can advance to full liquid diet if tolerating Discussed plan with patient, Dr. Meza hospitalist and RN Thank you for this consult Date of Service: Oct 16, 2024 Billing Provider: BINTA MACIAS Common Visit Codes: CONSULT ONLY Consultation Codes: [id number] CONSULT <60MIN BINTA MACIAS Oct 16, 2024 14:28
--- NOTE | 2024-10-16 14:52 | DVH ---
Technique: Real-time ultrasound imaging of the abdomen was performed with grayscale and color Doppler . Indication: lipase; elevated bilirubin Comparison: 10/14/2024 Findings: Liver measures 12.6 cm. It is increased in echogenicity and echotexture . Right hepatic lobe calcifi cation measuring 10 mm. Portal vein is normal in caliber and demonstrates normal hepatopetal flow. Gallbladder is removed. The common bile duct measures 7 mm. No intrahepatic biliary ductal dilatation. The right kidney measures 8.9 cm. No hydronephrosis or sonographic evidence of nephrolithiasis. The pancreas is poorly characterized. The visualized portion of the IVC is unremarkable. Impression: Cholecystectomy. Echogenic liver which can be seen with hepatic steatosis, cirrhosis. 10 mm right hepatic lobe calcification likely sequela of remote granulomatous disease.
[2024-10-16] MEDS: SUCRALFATE 1 GM/10 ML ORAL SUSP PO SCH (18:07)
[2024-10-17 01:00] VITALS: BP 116/68; PULSE 54; RESP 18; TEMP 98.5; O2SAT 96
[2024-10-17 05:00] VITALS: BP_SYST 102; BP_SYST 140; BP_DIAS 59; BP_DIAS 76; PULSE 64; PULSE 73; RESP 18; TEMP 98.4; TEMP 98.7; O2SAT 92; O2SAT 97
[2024-10-17 06:10] LABS: Calcium 8.7 mg/dL (8.7-10.4); Chloride 107 mmol/L (98-107); Potassium 3.2 mmol/L (3.5-5.1); Sodium 141 mmol/L (136-145)
[2024-10-17 06:11] LABS: Anion Gap 10 (5-15); Carbon Dioxide 24 mmol/L (20-31); Hematocrit 37.1 % (36.0-46.0); Hemoglobin 12.7 g/dL (12.2-16.2); Mean Corpuscular Hemoglobin 30.5 pg (28.0-32.0); Mean Corpuscular Volume 89.0 fL (80.0-100.0); Nucleated Red Blood Cells % 0.3 %
[2024-10-17 06:16] LABS: BUN/Creatinine Ratio 11.2 (10.0-20.0); Blood Urea Nitrogen 10 mg/dL (9-23); Glucose 85 mg/dL (74-106)
[2024-10-17 09:07] VITALS: BP 122/71; PULSE 60; RESP 18; TEMP 98; O2SAT 95
[2024-10-17 13:00] VITALS: BP 140/75; PULSE 66; RESP 16; TEMP 97.1; O2SAT 93
[2024-10-17] MEDS: POTASSIUM EFFERVESENT TAB 25 MEQ PO ONE (14:23)
--- NOTE | 2024-10-17 14:25 | DVHPN2 ---
Subjective Arabic-speaking; staff helped with translation; tolerated well clear liquid diet; decreasing abdominal pain; no nausea/vomiting Reviewed: Care Plan, H&P, Labs, Medications, Previous Orders, Radiology, Other (Consultation) Changes from previous H/P or p: Changes Objective Vitals Vital Signs Date Time Temp Pulse Resp B/P (MAP) Pulse Ox O2 Delivery O2 Flow Rate FiO2 10/17/24 13:00 97.1 66 16 140/75 (96) 93 97.1 10/17/24 08:00 Room Air* 0 21 Intake/Output Intake and Output 10/17/24 07:00 Intake Total 900 ml Output Total 700 ml Balance 200 ml Intake Oral 800 ml IV Total 100 ml Output Urine Total 700 ml # Voids 4 # Bowel Movements 4 General Appearance: Alert, Oriented X3, Cooperative, mild distress Lungs: Clear to auscultation, Normal air movement Cardiovascular: Regular rate, Normal S1, Normal S2, No murmurs Abdomen: Normal bowel sounds, Soft, Other (Mild diffuse tenderness) Extremities: No edema Neuro: Normal speech, Cranial nerves 3-12 NL Psych/Mental Status: Mental status NL, Mood NL Medications Current Medications Medications Dose Ordered Sig/Yamel Route Start Time Stop Time Status Last Admin Dose Admin Metronidazole 100 ml @ 100 mls/hr Q8HR IV 10/15/24 06:00 10/17/24 14:23 100 MLS/HR Pantoprazole Sodium 40 mg DAILY IV 10/15/24 10:00 10/17/24 09:16 40 MG Ondansetron HCl 4 mg Q4HP PRN IV 10/15/24 00:00 Morphine Sulfate 2 mg Q4HPRN PRN IV 10/15/24 00:00 Hold 10/15/24 09:01 2 MG Morphine Sulfate 1 mg Q4HP PRN IV 10/15/24 17:00 Enoxaparin Sodium 40 mg DAILY SC 10/16/24 10:00 10/17/24 09:16 40 MG Sucralfate 1 gm QID@0600,1130,1700,2200 PO 10/16/24 17:00 10/17/24 09:17 1 GM Laboratory Results Laboratory Tests 10/17/24 05:25 Chemistry Test 10/17/24 05:25 Calcium Level 8.7 mg/dL (8.7-10.4) Labs and/or images reviewed: Labs reviewed by me, Image(s) reviewed by me Assessment/Plan Assessment/Plan A 59-year-old obese female patient; with no known past medical history; who presented to emergency department with acute abdomen. # Acute abdomen; small-bowel obstruction ruled out # VALERIA; most likely vasomotor nephropathy # Colonic diverticulosis without diverticulitis # Hypokalemia due to GI losses # Pancolitis; most likely viral as per GI # Leukopenia; likely due to viral infection # Obesity To advance diet as tolerated Reviewed abdomen/pelvis CT and small bowel x-rays along with lab work including elevated lipase Continue IV metronidazole for now Evaluated by surgery and GI; declined EGD at this time Replace electrolytes as needed; ordered magnesium level Continue IV fluids Avoid nephrotoxic agents Continue pain management as indicated Counseled the patient on the importance of adopting healthy lifestyle with diet and exercise in order to lose weight Stool workup negative so far Continue monitoring Late Entry. This medical document was created using an electronic medical record system with computerized dictation system. Although this document has been carefully reviewed, there might still be some phonetic and typographical errors. These areas are purely typographical due to imperfections of the software programs, and do not reflect any compromise in the patient's medical care. Plan discussed with: Patient, Other (Nurse) My Orders Orders - SHIMA PANCHAL MD Procedure Category Date Status Time Full Liq Diet DIET 10/17/24 Transmitted Lunch Date of Service: Oct 17, 2024 Billing Provider: SHIMA PANCHAL MD Common Visit Codes: [id number] INP/OBS CARE(HIGH) SHIMA PANCHAL MD Oct 17, 2024 14:25
[2024-10-17] MEDS: ONDANSETRON HCL 4 MG/2 ML VIAL IV PRN (16:28)
[2024-10-17 17:00] VITALS: BP 104/72; PULSE 60; RESP 18; TEMP 97.8; O2SAT 98
--- NOTE | 2024-10-17 18:15 | DVHPN2 ---
Progress Note - Dictate Date Seen: Oct 17, 2024 Medical Necessity Reason Pt with a Central, PICC or Fol: No Subjective Patient seen at bedside, resting comfortably Patient still complains of epigastric pain but denied any diarrhea Four bowel movements were recorded. She denies any bleeding Stool for WBC and occult blood were negative. Stool for bacterial culture was negative vital signs Vital Sign Date Time Temp Pulse Resp B/P (MAP) Pulse Ox O2 Delivery O2 Flow Rate FiO2 10/17/24 17:00 97.8 60 18 104/72 (83) 98 97.8 10/17/24 08:00 Room Air* 0 21 Total Intake and Output 10/16/24 10/16/24 10/17/24 15:00 23:00 07:00 Intake Total 900 ml 0 ml Output Total 700 ml Balance 900 ml -700 ml medications Current Medications Medications Dose Ordered Sig/Yamel Route Start Time Stop Time Status Last Admin Dose Admin Metronidazole 100 ml @ 100 mls/hr Q8HR IV 10/15/24 06:00 10/17/24 14:23 100 MLS/HR Pantoprazole Sodium 40 mg DAILY IV 10/15/24 10:00 10/17/24 09:16 40 MG Ondansetron HCl 4 mg Q4HP PRN IV 10/15/24 00:00 10/17/24 16:28 4 MG Morphine Sulfate 2 mg Q4HPRN PRN IV 10/15/24 00:00 Hold 10/15/24 09:01 2 MG Morphine Sulfate 1 mg Q4HP PRN IV 10/15/24 17:00 Enoxaparin Sodium 40 mg DAILY SC 10/16/24 10:00 10/17/24 09:16 40 MG Sucralfate 1 gm QID@0600,1130,1700,2200 PO 10/16/24 17:00 10/17/24 09:17 1 GM objective General Appearance: Alert, Oriented X3, Cooperative, no acute distress Lungs: Clear to auscultation, Normal air movement Cardiovascular: Regular rate, Normal S1, Normal S2, No murmurs Abdomen: Soft, mild epigastric tenderness Extremities: No edema Neuro: Normal speech, Cranial nerves 3-12 NL Psych/Mental Status: Mental status NL, Mood NL laboratory and microbiology Laboratory Tests 10/17/24 05:25 Test 10/17/24 05:25 Range/Units Serum Glucose 85 74-106 mg/dL Right upper quadrant ultrasound Impression: Cholecystectomy. Echogenic liver which can be seen with hepatic steatosis, cirrhosis. 10 mm right hepatic lobe calcification likely sequela of remote granulomatous disease. Small-bowel follow-through x-ray FINDINGS/IMPRESSION: Initial electromechanical technologist view of the abdomen and pelvis appears demonstrates no acute process. Contrast is identified within the colon by 2 hours. This represents a normal small bowel transit time CT scan abdomen pelvis IMPRESSION: Colitis involving the ascending, transverse and descending colons. Mildly distended Segments of fluid-filled proximal to mid small bowel measuring up to 3 cm which may be due to ileus/ early bowel obstruction. Colonic diverticulosis without diverticulitis. Problems(with codes): (1) Colitis (2) Abnormal finding on GI tract imaging (3) Epigastric pain Prognosis Plan Patient does not show evidence of inflammatory or infectious colitis with stool tests showing no WBC and no blood and bacterial culture is negative Patient may have had an acute viral gastroenteritis this is resolving Advance diet as tolerated Continue Protonix and Carafate for suspected mild gastritis If symptoms persist I will be standing by for an endoscopy on October 19, 2024 If the patient however is better we can possibly discharge her and I can do an elective panendoscopy as an outpatient Dietary Evaluation Review Comments: 1. check A1C, When GI symptom subside, advance to soft diet or CCHO-60 diet if A1C is elevated 2. Wt management upon D/C Expected Outcomes/Goals: gradual wt loss Plan discussed with: Patient, Other (Eboni Sosa) ZAINA MARTINEZ MD Oct 17, 2024 18:15
[2024-10-17 21:00] VITALS: BP 98/55; PULSE 80; RESP 18; TEMP 98; O2SAT 93
[2024-10-18 01:00] VITALS: BP 100/55; PULSE 70; RESP 18; TEMP 98.7; O2SAT 95
[2024-10-18 04:46] VITALS: BP 109/71; PULSE 75; RESP 18; TEMP 97.9; O2SAT 98
[2024-10-18] MEDS: PANTOPRAZOLE 40 MG TAB PO SCH (05:58)
[2024-10-18 06:08] LABS: Anion Gap 9 (5-15); Carbon Dioxide 25 mmol/L (20-31); Chloride 107 mmol/L (98-107); Potassium 3.8 mmol/L (3.5-5.1); Sodium 141 mmol/L (136-145)
[2024-10-18 06:12] LABS: Calcium 8.5 mg/dL (8.7-10.4)
[2024-10-18 06:14] LABS: Glucose 95 mg/dL (74-106)
[2024-10-18 06:15] LABS: BUN/Creatinine Ratio 11.4 (10.0-20.0); Blood Urea Nitrogen 12 mg/dL (9-23); Magnesium 2.2 mg/dL (1.6-2.6)
--- NOTE | 2024-10-18 08:15 | DVHPN2 ---
Subjective Frisian-speaking; staff helped with translation; tolerated well clear liquid diet; no abdominal pain/nausea/vomiting; ready to go home as per patient Reviewed: Care Plan, H&P, Labs, Medications, Previous Orders, Radiology, Other (Consultation) Changes from previous H/P or p: Changes Objective Vitals Vital Signs Date Time Temp Pulse Resp B/P (MAP) Pulse Ox O2 Delivery O2 Flow Rate FiO2 10/18/24 04:46 97.9 75 18 109/71 (84) 98 97.9 10/17/24 20:00 Room Air* 0 21 Intake/Output Intake and Output 10/18/24 07:00 Intake Total 1320 ml Balance 1320 ml Intake Oral 1120 ml IV Total 200 ml # Voids 6 General Appearance: Alert, Oriented X3, Cooperative, mild distress Lungs: Clear to auscultation, Normal air movement Cardiovascular: Regular rate, Normal S1, Normal S2, No murmurs Abdomen: Normal bowel sounds, Soft, No tenderness Extremities: No edema Neuro: Normal speech, Cranial nerves 3-12 NL Psych/Mental Status: Mental status NL, Mood NL Medications Current Medications Medications Dose Ordered Sig/Yamel Route Start Time Stop Time Status Last Admin Dose Admin Metronidazole 100 ml @ 100 mls/hr Q8HR IV 10/15/24 06:00 10/18/24 05:59 100 MLS/HR Pantoprazole Sodium 40 mg DAILY IV 10/15/24 10:00 Hold 10/17/24 09:16 40 MG Ondansetron HCl 4 mg Q4HP PRN IV 10/15/24 00:00 10/17/24 16:28 4 MG Morphine Sulfate 2 mg Q4HPRN PRN IV 10/15/24 00:00 Hold 10/15/24 09:01 2 MG Morphine Sulfate 1 mg Q4HP PRN IV 10/15/24 17:00 Enoxaparin Sodium 40 mg DAILY SC 10/16/24 10:00 10/17/24 09:16 40 MG Sucralfate 1 gm QID@0600,1130,1700,2200 PO 10/16/24 17:00 10/18/24 05:58 1 GM Pantoprazole Sodium 40 mg BID@0600,1700 PO 10/18/24 06:00 10/18/24 05:58 40 MG Laboratory Results Laboratory Tests 10/17/24 05:25 10/18/24 05:28 Chemistry Test 10/18/24 05:28 Calcium Level 8.5 mg/dL (8.7-10.4) L Magnesium Level 2.2 mg/dL (1.6-2.6) Microbiology Microbiology Date/Time Source Procedure Growth Status 10/17/24 12:25 Stool Stool Culture - Preliminary Resulted 10/17/24 12:25 Stool Shiga Toxin I & II - Final Resulted Labs and/or images reviewed: Labs reviewed by me, Image(s) reviewed by me Assessment/Plan Assessment/Plan A 59-year-old obese female patient; with no known past medical history; who presented to emergency department with acute abdomen. # Acute abdomen; small-bowel obstruction ruled out; cleared by general surgery; tolerating well diet # VALERIA; most likely vasomotor nephropathy; resolved # Colonic diverticulosis without diverticulitis; to follow up as outpatient with GI for colonoscopy and possible EGD # Hypokalemia due to GI losses; corrected # Pancolitis; most likely viral as per GI; symptoms resolved # Leukopenia; likely due to viral infection; to follow up as outpatient for repeat of CBC # Obesity Tolerating well diet Reviewed abdomen/pelvis CT and small bowel x-rays along with lab work including elevated lipase Received IV metronidazole; no antibiotics upon discharge Evaluated by surgery and GI; declined EGD at this time Received IV fluids and potassium replacement Avoid nephrotoxic agents Counseled the patient on the importance of adopting healthy lifestyle with diet and exercise in order to lose weight Stool workup came back negative To follow up with Dr. Panchal in discharge clinic next Tuesday Late Entry. This medical document was created using an electronic medical record system with computerized dictation system. Although this document has been carefully reviewed, there might still be some phonetic and typographical errors. These areas are purely typographical due to imperfections of the software programs, and do not reflect any compromise in the patient's medical care. Plan discussed with: Patient, Other (Nurse) Date of Service: Oct 18, 2024 Billing Provider: SHIMA PANCHAL MD Common Visit Codes: [id number] INP/OBS CARE(MOD) SHIMA APNCHAL MD Oct 18, 2024 08:15
[2024-10-18 09:00] VITALS: BP 106/58; PULSE 56; RESP 16; TEMP 98; O2SAT 96
[2024-10-18 13:00] VITALS: BP 115/71; PULSE 60; RESP 18; TEMP 98; O2SAT 97
[2024-10-18] MEDS ORDERED: PANT40T PO (13:27)
--- NOTE | 2024-10-18 13:30 | DVHDS2 ---
Discharge Summary Date of Admission Oct 14, 2024 at 23:48 Date of Discharge: Oct 18, 2024 Admitting Diagnosis Abdominal pain with nausea and vomiting Labs/Diagnostic Data: Laboratory Results Test 10/18/24 05:28 10/17/24 12:25 10/17/24 05:25 10/16/24 14:54 Sodium Level 141 mmol/L (136-145) Potassium Level 3.8 mmol/L (3.5-5.1) Chloride Level 107 mmol/L (98-107) Carbon Dioxide Level 25 mmol/L (20-31) Anion Gap 9 (5-15) Blood Urea Nitrogen 12 mg/dL (9-23) Creatinine 1.05 mg/dL (0.550-1.02) Glomerular Filtration Rate Calc 60 mL/min (>90) BUN/Creatinine Ratio 11.4 (10.0-20.0) Serum Glucose 95 mg/dL (74-106) Calcium Level 8.5 mg/dL (8.7-10.4) Magnesium Level 2.2 mg/dL (1.6-2.6) Stool Occult Blood Negative (Negative) Stool Occult Blood Sample #3 (Negative) White Blood Count 4.0 10^3/uL (4.4-10.8) Red Blood Count 4.17 10^6/uL (4.0-5.20) Hemoglobin 12.7 g/dL (12.2-16.2) Hematocrit 37.1 % (36.0-46.0) Mean Corpuscular Volume 89.0 fL (80.0-100.0) Mean Corpuscular Hemoglobin 30.5 pg (28.0-32.0) Mean Corpuscular Hemoglobin Concent 34.3 g/dL (32.0-36.0) Red Cell Distribution Width 14.3 % (11.8-14.3) Platelet Count 218 10^3/uL (140-450) Mean Platelet Volume 8.6 fL (6.9-10.8) Neutrophils (%) (Auto) 54.8 % (37.0-80.0) Lymphocytes (%) (Auto) 34.2 % (10.0-50.0) Monocytes (%) (Auto) 7.1 % (0.0-12.0) Eosinophils (%) (Auto) 2.8 % (0.0-7.0) Basophils (%) (Auto) 1.1 % (0.0-2.0) Neutrophils # (Auto) 2.2 10 ^3/uL (1.6-8.6) Lymphocytes # (Auto) 1.4 10 ^3/uL (0.4-5.4) Monocytes # (Auto) 0.3 10 ^3/uL (0-1.3) Eosinophils # (Auto) 0.1 10 ^3/uL (0-0.8) Basophils # (Auto) 0 10 ^3/uL (0-0.2) Nucleated Red Blood Cells 0.3 % Stool for White Cells None seen Test 10/16/24 05:52 10/15/24 00:44 10/14/24 21:25 Total Bilirubin 1.3 mg/dL (0.2-1.0) Aspartate Amino Transferase (AST) 15 U/L (13-40) Alanine Aminotransferase (ALT) 16 U/L (7-40) Alkaline Phosphatase 89 U/L (46-116) Total Protein 5.8 g/dL (5.7-8.2) Albumin 3.7 g/dL (3.2-4.8) POC Glucose 118 mg/dl (70-106) Lipase 63 U/L (12-53) Other Laboratory Tests 10/18/24 05:28 10/17/24 05:25 Brief Hx & Hospital Course: A 59-year-old obese female patient; with no known past medical history; who presented to emergency department with acute abdomen. # Acute abdomen; small-bowel obstruction ruled out; cleared by general surgery; tolerating well diet # VALERIA; most likely vasomotor nephropathy; resolved # Colonic diverticulosis without diverticulitis; to follow up as outpatient with GI for colonoscopy and possible EGD # Hypokalemia due to GI losses; corrected # Pancolitis; most likely viral as per GI; symptoms resolved # Leukopenia; likely due to viral infection; to follow up as outpatient for repeat of CBC # Obesity Tolerating well diet Reviewed abdomen/pelvis CT and small bowel x-rays along with lab work including elevated lipase Received IV metronidazole; no antibiotics upon discharge Evaluated by surgery and GI; declined EGD at this time Received IV fluids and potassium replacement Avoid nephrotoxic agents Counseled the patient on the importance of adopting healthy lifestyle with diet and exercise in order to lose weight Stool workup came back negative To follow up with Dr. Panchal in discharge clinic next Tuesday Late Entry. This medical document was created using an electronic medical record system with computerized dictation system. Although this document has been carefully reviewed, there might still be some phonetic and typographical errors. These areas are purely typographical due to imperfections of the software programs, and do not reflect any compromise in the patient's medical care. Consults/Reason for consult Surgery due to suspect of small bowel obstruction; GI for abdominal pain Condition at Discharge: Good Final Diagnosis/Problems List # Acute abdomen; small-bowel obstruction ruled out # VALERIA; most likely vasomotor nephropathy # Colonic diverticulosis without diverticulitis # Hypokalemia due to GI losses # Pancolitis; most likely viral as per GI # Leukopenia; likely due to viral infection # Obesity Discharge Disposition: Home Discharge Instruct/Medications Diet: Regular Activity: No Restrictions, As Tolerated Follow Up/Referral: Dr. Panchal/ at 2 pm on Tuesday10/22/2024 in [place] [id number]//Dr. Salazar within 2 to 4 weeks Medications: None Scheduled Pantoprazole Sodium Sesquihydr (Pantoprazole Sodium), 40 MG PO DAILY Discharge Statement: "Patient was advised to return to the ER or call 911 if any headaches, dizziness, shortness of breath, chest pain, abdominal pain, bleeding, fevers, or worsening of medical condition. Patient was counseled about treatment plan, medications, possible side effects, patientverbalized understanding. All questions were answered to the best of my ability. This discharge took greater then 30 minutes in planning, reviewing documentation, counseling the patient, and discussing with other team members." ASSESSMENT ASSESSMENT Assessment # Acute abdomen; small-bowel obstruction ruled out # VALERIA; most likely vasomotor nephropathy # Colonic diverticulosis without diverticulitis # Hypokalemia due to GI losses # Pancolitis; most likely viral as per GI # Leukopenia; likely due to viral infection # Obesity Date of Service: Oct 18, 2024 Billing Provider: SHIMA PANCHAL MD Common Visit Codes: 27677-MTQ/OBS DISCH DAY >30min SHIMA PANCHAL MD Oct 18, 2024 13:30
--- NOTE | 2024-10-18 19:35 | DVHPN2 ---
Progress Note - Dictate Date Seen: Oct 18, 2024 (Late entryTime of visit was done a.m.) Medical Necessity Reason Pt with a Central, PICC or Fol: No Subjective Patient seen at bedside, resting comfortably ; tolerating diet Abdominal pain has improved and there was no diarrhea ; no bowel movement last night Patient has minimal epigastric pain and dyspepsia Patient was worried because her sister was hospitalized last night at another hospital Stool for WBC and occult blood were negative. Stool for bacterial culture was negative vital signs Vital Sign Date Time Temp Pulse Resp B/P (MAP) Pulse Ox O2 Delivery O2 Flow Rate FiO2 10/18/24 13:00 98.0 60 18 115/71 (86) 97 98.0 10/18/24 08:00 Room Air* 0 21 Total Intake and Output 10/17/24 10/17/24 10/18/24 14:59 22:59 06:59 Intake Total 1020 ml 300 ml Balance 1020 ml 300 ml objective General Appearance: Alert, Oriented X3, Cooperative, no acute distress Lungs: Clear to auscultation, Normal air movement Cardiovascular: Regular rate, Normal S1, Normal S2, No murmurs Abdomen: Soft, mild epigastric tenderness Extremities: No edema Neuro: Normal speech, Cranial nerves 3-12 NL Psych/Mental Status: Mental status NL, Mood NL laboratory and microbiology Laboratory Tests 10/18/24 05:28 10/17/24 05:25 Test 10/18/24 05:28 Range/Units Serum Glucose 95 74-106 mg/dL Problems(with codes): (1) Gastroenteritis (2) Abnormal finding on GI tract imaging (3) Epigastric pain (4) Colitis Prognosis Plan Patient does not show evidence of inflammatory or infectious colitis with stool tests showing no WBC and no blood and bacterial culture is negative Patient may have had an acute viral gastroenteritis this is resolving Advance diet as tolerated Continue Protonix and Carafate for suspected mild gastritis I offered pt an endoscopy on October 19, 2024 However patient stated she is better we can possibly discharge her and I can do an elective panendoscopy as an outpatient My contact information was given to her to arrange outpatient visit Dietary Evaluation Review Comments: 1. check A1C, When GI symptom subside, advance to soft diet or CCHO-60 diet if A1C is elevated 2. Wt management upon D/C Expected Outcomes/Goals: gradual wt loss Plan discussed with: Patient, Other (Nurse) ZAINA MARTINEZ MD Oct 18, 2024 19:35
== END 2024-10-18 15:54 | disposition home or self-care (01) | DRG 391 ==
LOC: ER 20:36 → OVERFLOW 23:48 → EAST 10-15 01:56
PROVIDERS: ADMIT Internal Medicine; ATTEND Internal Medicine
DX: A08.4 Viral intestinal infection, unspecified (principal); N17.0 Acute kidney failure with tubular necrosis; E66.01 Morbid (severe) obesity due to excess calories; Z68.38 Body mass index [BMI] 38.0-38.9, adult; E89.0 Postprocedural hypothyroidism; E87.6 Hypokalemia; K57.30 Diverticulosis of large intestine without perforation or abscess without bleeding; D72.819 Decreased white blood cell count, unspecified; Z90.49 Acquired absence of other specified parts of digestive tract; Z82.49 Family history of ischemic heart disease and other diseases of the circulatory system; Z88.0 Allergy status to penicillin
CPT/HCPCS: 36415; 74176; 74250; 76705; 80048; 80053; 82270; 82962; 83690; 83735; 85025; 85048; 87045; 87427; 96361; 96374; G0378; J2405; J2470; J3490; Q0162

== ENCOUNTER 2024-10-30 14:02 | Outpatient (CLI) | payer OTHER ==
[~2024-10-30 14:02] MED LIST: PANT40T PO
== END 2024-10-30 17:00 | disposition home or self-care (01) ==
LOC: LAB 14:02
PROVIDERS: ATTEND Internal Medicine
DX: E03.9 Hypothyroidism, unspecified (principal)
CPT/HCPCS: 36415; 84439; 84443